=== PATIENT | male | born 1945 | race Caucasian/White ===

== ENCOUNTER 2021-06-22 09:41 | Emergency (ER) | payer MEDICARE, MEDICAID ==
[~2021-06-22] VITALS: Ht 188 cm; Wt 95.5 kg
[~2021-06-22 09:41] MED LIST: NO HOME MEDS
[2021-06-22 09:45] VITALS: BP 176/102
[2021-06-22] MEDS ORDERED: CLON0.5T4 PO (10:59)
== END 2021-06-22 11:17 | disposition home or self-care (01) ==
LOC: ER 09:41
DX: G47.09 Other insomnia (principal); N40.0 Benign prostatic hyperplasia without lower urinary tract symptoms; G89.29 Other chronic pain; F31.9 Bipolar disorder, unspecified; F44.81 Dissociative identity disorder; Z85.9 Personal history of malignant neoplasm, unspecified; Z98.890 Other specified postprocedural states; Z79.899 Other long term (current) drug therapy
CPT/HCPCS: 99283

== ENCOUNTER 2021-11-21 05:35 | Emergency (ER) | payer MEDICARE, MEDICAID ==
[~2021-11-21] VITALS: Ht 188 cm; Wt 73.6 kg
[~2021-11-21 05:35] MED LIST changes: +CLON0.5T4 PO
[2021-11-21 06:00] LABS: BASOPHILS # (AUTO) 0.1 X10'3 (0-0.2); BASOPHILS % (AUTO) 1.3 % (0-1); EOSINOPHILS # (AUTO) 0.2 X10'3 (0-0.9); EOSINOPHILS % (AUTO) 3.9 % (0-6); HEMATOCRIT 47.8 % (42.0-52.0); HEMOGLOBIN 16.1 g/dl (14.0-17.9); LYMPHOCYTES # (AUTO) 2.2 X10'3 (1.1-4.8); LYMPHOCYTES % (AUTO) 38.7 % (21-51); MEAN CORPUSCULAR HEMOGLOBIN 30.3 PG (27.0-31.0); MEAN CORPUSCULAR HGB CONC 33.8 g/dL (33.0-36.5); MEAN CORPUSCULAR VOLUME 89.6 FL (78-98); MEAN PLATELET VOLUME 9.1 FL (7.4-10.4); MONOCYTES # (AUTO) 0.5 X10'3 (0-0.9); MONOCYTES % (AUTO) 7.9 % (2-12); NEUTROPHILS # (AUTO) 2.8 X10'3 (1.8-7.7); NEUTROPHILS % (AUTO) 48.2 % (42-75); PLATELET COUNT 164 X10'3 (140-440); RED BLOOD COUNT 5.34 X10'6 (4.70-6.10); RED CELL DISTRIBUTION WIDTH 13.9 % (11.5-14.5); WHITE BLOOD COUNT 5.7 X10'3 (4.5-11.0)
[2021-11-21 06:17] LABS: ALANINE AMINOTRANSFERASE 33 U/L (12-78); ALBUMIN 3.9 G/DL (3.4-5.0); ALBUMIN/GLOBULIN RATIO 1.3 (1.1-1.5); ALKALINE PHOSPHATASE 53 IU/L (46-116); ANION GAP 9 (8-16); ASPARTATE AMINO TRANSFERASE 20 U/L (10-37); BLOOD UREA NITROGEN 10 MG/DL (7-18); BUN/CREATININE RATIO 9.7 (5.4-32.0); CALCIUM 9.1 MG/DL (8.5-10.1); CHLORIDE 106 MMOL/L (99-107); CREATININE 1.03 MG/DL (0.60-1.10); GLUCOSE 128 MG/DL (70-104); SODIUM 142 MMOL/L (135-145); TOTAL CARBON DIOXIDE 27.3 MMOL/L (24-32); eGFR 70 ML/MIN
--- NOTE | 2021-11-21 06:30 | NUR ---
first conact with pt, found supine in bed. denies palpitations at this time, awaiting blood test results. no distress.
[2021-11-21 06:42] VITALS: BP 140/88
--- NOTE | 2021-11-21 06:45 | NUR ---
dr. alberto at bedside.
== END 2021-11-21 06:52 | disposition home or self-care (01) ==
LOC: ER 05:35
DX: R00.2 Palpitations (principal); R07.89 Other chest pain; N40.0 Benign prostatic hyperplasia without lower urinary tract symptoms; G89.29 Other chronic pain; Z85.9 Personal history of malignant neoplasm, unspecified; Z79.899 Other long term (current) drug therapy
CPT/HCPCS: 36415; 71045; 80053; 83880; 84484; 85025; 93005; 99285

== ENCOUNTER 2022-12-14 04:11 | Observation (INO) | payer MEDICARE, MEDICAID ==
[2022-12-14] VITALS (9 sets, daily range): BP systolic 116–142; BP diastolic 69–92; PULSE 61–76; RESP 18–19; TEMP 98.1; O2SAT 96–97
[~2022-12-14] VITALS: Ht 188 cm; Wt 93.2 kg
[2022-12-14 04:43] LABS: ALANINE AMINOTRANSFERASE 31 U/L (12-78); ALBUMIN 3.9 G/DL (3.4-5.0); ALBUMIN/GLOBULIN RATIO 1.1 (1.1-1.5); ALKALINE PHOSPHATASE 59 IU/L (46-116); ANION GAP 8 (8-16); ASPARTATE AMINO TRANSFERASE 16 U/L (10-37); BILIRUBIN,TOTAL 0.8 MG/DL (0.1-1.0); BLOOD UREA NITROGEN 9 MG/DL (7-18); BUN/CREATININE RATIO 9.1 (10.0-20.0); CALCIUM 9.8 MG/DL (8.5-10.1); CHLORIDE 102 MMOL/L (99-107); CREATININE 0.99 MG/DL (0.60-1.10); GLUCOSE 146 MG/DL (70-104); POTASSIUM 3.8 MMOL/L (3.5-5.1); SODIUM 137 MMOL/L (135-145); TOTAL CARBON DIOXIDE 27.2 MMOL/L (24-32); TOTAL PROTEIN 7.3 G/DL (6.4-8.2); eCRCL 74 ML/MIN; eGFR 73 ML/MIN
[2022-12-14 04:48] LABS: BASOPHILS # (AUTO) 0.1 X10'3 (0-0.2); BASOPHILS % (AUTO) 0.8 % (0-1); EOSINOPHILS # (AUTO) 0.1 X10'3 (0-0.9); EOSINOPHILS % (AUTO) 1.3 % (0-6); HEMATOCRIT 46.8 % (42.0-52.0); HEMOGLOBIN 15.5 g/dl (14.0-17.9); LYMPHOCYTES # (AUTO) 2.4 X10'3 (1.1-4.8); LYMPHOCYTES % (AUTO) 36.8 % (21-51); MEAN CORPUSCULAR HEMOGLOBIN 30.3 PG (27.0-31.0); MEAN CORPUSCULAR VOLUME 91.7 FL (78-98); MEAN PLATELET VOLUME 8.8 FL (7.4-10.4); MONOCYTES # (AUTO) 0.6 X10'3 (0-0.9); MONOCYTES % (AUTO) 8.8 % (2-12); NEUTROPHILS # (AUTO) 3.4 X10'3 (1.8-7.7); NEUTROPHILS % (AUTO) 52.3 % (42-75); PLATELET COUNT 189 X10'3 (140-440); RED BLOOD COUNT 5.11 X10'6 (4.70-6.10); WHITE BLOOD COUNT 6.6 X10'3 (4.5-11.0)
[2022-12-14 04:52] LABS: PRO BRAIN NATRIURETIC PEPTIDE 55 PG/ML (0-450)
[2022-12-14] MEDS ORDERED: nitroGLYCERIN 0.2mg/hour patch TD ONE (05:00)
[2022-12-14] MEDS ORDERED: normal saline 1000ML IV soln IVB ONE (05:00)
[2022-12-14] MEDS ORDERED: LORazepam 1 MG tablet PO ONE (05:00)
[2022-12-14] MEDS ORDERED: acetaminophen 325mg tablet PO ONE (05:00)
[2022-12-14] MEDS ORDERED: aspirin 81mg tab.chew PO ONE (05:00)
[2022-12-14] MEDS ORDERED: LORazepam 2 mg/ml vial IV ONE (05:00)
[2022-12-14] MEDS ORDERED: potassium Cl 40MEQ/1/2NS 520ml 520 ML IV PRN (08:15)
[2022-12-14] MEDS ORDERED: magnesium Cl slow-release 64mg tablet PO PRN (08:15)
[2022-12-14] MEDS ORDERED: potassium Cl 20 mEq SR tablet PO PRN ×2 (08:15)
[2022-12-14] MEDS ORDERED: magnesium 2GM in 50ml NS 50 ML IV PRN (08:15)
[2022-12-14] MEDS ORDERED: magnesium 4gm in 100ml NS 100 ML IV PRN (08:15)
[2022-12-14] MEDS ORDERED: ondansetron/PF 4mg/2ml inj IV PRN (08:15)
[2022-12-14 08:51] LABS: MAGNESIUM 2.3 MG/DL (1.5-2.4)
--- NOTE | 2022-12-14 11:00 | NUR ---
PT TO [facility] FOR CARDIAC STRESS TEST, ON MONITOR WITH RN. PT IS ALERT AND ORIENTED X3, RESP EVEN AND UNLABORED, SKIN P/W/D, ABLE TO TRANSFER WITHOUT ASSIST FROM BED TO WHEELCHAIR, SR ON THE MONITOR, NO ECTOPY
[2022-12-14] MEDS ORDERED: regadenoson 0.4mg/5ml syringe IV ONE (11:25)
[2022-12-14] MEDS ORDERED: aminophylline inj. 0 ML IV ONE (11:27)
--- NOTE | 2022-12-14 13:36 | NUR ---
sent to [facility]: [id number] [facility]: stress test results are available. can pt eat? can pt go home? Kayla GARDINER [id number]
--- NOTE | 2022-12-14 15:10 | NUR ---
Discharge instructions discussed with pt. all questions answered. pt stated he understands all instructions. Pt ambulated on own off of unit to private car.
[2022-12-14] MEDS ORDERED: K and/or MAG REPLACEMENT MC SCH (20:00)
== END 2022-12-14 15:20 | disposition home or self-care (01) ==
LOC: ER 04:11 → PCU 3S 08:16
PROVIDERS: ADMIT Internal Medicine; ATTEND Internal Medicine
DX: R07.89 Other chest pain (principal); F41.9 Anxiety disorder, unspecified
CPT/HCPCS: 36415; 71045; 78452; 80053; 83735; 83880; 84484; 85025; 87081; 93005; 93017; 96361; 96374; 99285; A9500; G0378; J2060; J2785; J7030; J0280